=== PATIENT | female | born 1950 | race Caucasian/White ===

== ENCOUNTER 2021-10-19 02:30 | Inpatient (IN) | payer OTHER ==
[~2021-10-19] VITALS: Ht 157.5 cm; Wt 42.6 kg
[2021-10-19 02:50] LABS: BASOPHIL 0.3 % (0-2); EOSINOPHIL 0.1 % (0-7); HCT 42.8 % (37.0-47.0); HGB 12.5 g/dl (12.5-16.0); MCHC 29.2 g/dL (32.0-36.0); MCV 92.4 fL (78.0-100.0); MONOCYTE 7.4 % (0-12); MPV 10.7 fL (6.0-9.5); NEUTROPHIL 84.8 % (41-80); NRBC 0; PLT 339 K/uL (150-400); RBC 4.63 M/uL (4.20-5.40); RDW 16.4 % (11.5-14.0); WBC 18.9 K/uL (4.0-10.5)
[2021-10-19 03:06] LABS: ALBUMIN 2.5 g/dL (3.4-5.0); BILIRUBIN - TOTAL 0.3 mg/dL (0.2-1.0); BUN/CREAT RATIO (CALC) 50.6 RATIO; CREATININE 0.87 mg/dL (0.51-0.95); GLOBULIN (CALCULATION) 5.6 g/dL; POTASSIUM 3.8 mmol/L (3.5-5.1); TOTAL PROTEIN 8.1 g/dL (6.4-8.2)
[2021-10-19 03:07] LABS: LACTIC ACID 1.8 mmol/L (0.4-1.9)
[2021-10-19 03:08] LABS: INR 1.11 (0.9-1.2)
[2021-10-19 04:16] LABS: BILIRUBIN NEGATIVE (NEGATIVE); BLOOD NEGATIVE Ery/uL (NEGATIVE); CLARITY CLEAR (CLEAR); COLOR YELLOW (YELLOW); GLUCOSE (U) NORMAL (NORMAL); LEUKOCYTES 3+ Leu/uL (NEGATIVE); NITRITE NEGATIVE (NEGATIVE); PROTEIN NEGATIVE (NEGATIVE); UROBILINOGEN 0.2 mg/dL (0.2-1.0); pH 6.5 (5.0-9.0)
[2021-10-19 04:30] LABS: CORONAVIRUS 2019 SARS-COV-2 NEGATIVE (NEGATIVE); INFLUENZA A NAA NEGATIVE (NEGATIVE)
[2021-10-19 04:46] LABS: YEAST NOT PRESENT
[2021-10-19 05:32] LABS: BUN/CREAT RATIO (CALC) 40.2 RATIO; CREATININE 1.07 mg/dL (0.51-0.95); POTASSIUM 3.9 mmol/L (3.5-5.1)
[2021-10-19] MEDS ORDERED: 8 HOUR650 MG PO (11:51)
[2021-10-19] MEDS ORDERED: ASPIRIN EC81 MG PO (11:52)
[2021-10-19] MEDS ORDERED: LIPITOR40 MG PO (11:53)
[2021-10-19] MEDS ORDERED: PULMICORT0.5 MG/2 M NEB (11:53)
[2021-10-19] MEDS ORDERED: PLAVIX75 MG PO (11:54)
[2021-10-19] MEDS ORDERED: PEPCID AC20 MG PO (11:56)
[2021-10-19] MEDS ORDERED: LOVENOX30 MG/0.3 SQ (11:56)
[2021-10-19] MEDS ORDERED: FERROUS SU300 MG/5 M PO (12:06)
[2021-10-19] MEDS ORDERED: FOLIC ACID1 MG PO (12:07)
[2021-10-19] MEDS ORDERED: KEPPRA100 MG/1 M GT (12:08)
[2021-10-19] MEDS ORDERED: CYTOMEL25 MCG GT (12:09)
[2021-10-19] MEDS ORDERED: MIRALAX17 GM PO (12:09)
[2021-10-19] MEDS ORDERED: UROCIT-K10 MEQ GT (12:10)
[2021-10-19] MEDS ORDERED: SENOKOT8.6 MG PO (12:11)
[2021-10-19] MEDS ORDERED: B-1100 MG GT (12:12)
[2021-10-19 19:16] LABS: BUN/CREAT RATIO (CALC) 39.6 RATIO; CREATININE 0.91 mg/dL (0.51-0.95); POTASSIUM 3.5 mmol/L (3.5-5.1)
[2021-10-20 00:19] LABS: BUN/CREAT RATIO (CALC) 38.8 RATIO; CREATININE 0.85 mg/dL (0.51-0.95)
--- NOTE | 2021-10-20 14:15 | NUR ---
TRACH SUCTIONING PERFORMED.
[2021-10-20 14:33] LABS: IRON % SATURATION 7.7 %SAT (20-50)
[2021-10-20 14:44] LABS: BASOPHIL 0.2 % (0-2); EOSINOPHIL 0.8 % (0-7); HGB 9.2 g/dl (12.5-16.0); LYMPHOCYTE 12.9 % (15-48); MCH 27.1 pg (25.0-31.0); MCHC 28.8 g/dL (32.0-36.0); MCV 94.1 fL (78.0-100.0); MONOCYTE 6.1 % (0-12); MPV 10.7 fL (6.0-9.5); NEUTROPHIL 79.5 % (41-80); NRBC 0; PLT 234 K/uL (150-400); RDW 15.7 % (11.5-14.0); WBC 9.5 K/uL (4.0-10.5)
[2021-10-20 15:18] LABS: BILIRUBIN - TOTAL 0.2 mg/dL (0.2-1.0); CREATININE 0.73 mg/dL (0.51-0.95); FOLIC ACID (SERUM) 72.7 ng/mL (8.6-58.9); GLOBULIN (CALCULATION) 4.5 g/dL; MAGNESIUM 2.3 mg/dL (1.8-2.4); POTASSIUM 2.8 mmol/L (3.5-5.1); TOTAL PROTEIN 6.5 g/dL (6.4-8.2)
[2021-10-20] MEDS ORDERED: PROZAC20 MG PO (17:37)
[2021-10-20] MEDS ORDERED: NORVASC5 MG PO (17:37)
[2021-10-20] MEDS ORDERED: NAMENDA 10MG TA10 MG PO (17:37)
[2021-10-20] MEDS ORDERED: COLACE100 MG PO (17:37)
[2021-10-20] MEDS ORDERED: PRILOSEC20 MG PO (17:38)
[2021-10-20] MEDS ORDERED: LOPRESSOR25 MG PO (17:38)
[2021-10-20] MEDS ORDERED: DAILY VALUE1 EACH PO (17:38)
[2021-10-20] MEDS ORDERED: VITAMIN D3125 MC1 PO (17:39)
[2021-10-20 19:30] LABS: HCT 30.4 % (37.0-47.0); HGB 8.8 g/dL (12.5-16.0)
[2021-10-20 19:45] LABS: BUN/CREAT RATIO (CALC) 35.7 RATIO; CREATININE 0.7 mg/dL (0.51-0.95); POTASSIUM 3.2 mmol/L (3.5-5.1)
[2021-10-21 07:00] LABS: BASOPHIL 0.3 % (0-2); EOSINOPHIL 1.6 % (0-7); HCT 33.8 % (37.0-47.0); HGB 9.4 g/dl (12.5-16.0); LYMPHOCYTE 17.4 % (15-48); MCH 26.6 pg (25.0-31.0); MCHC 27.8 g/dL (32.0-36.0); MCV 95.8 fL (78.0-100.0); MONOCYTE 6.2 % (0-12); MPV 10.9 fL (6.0-9.5); NEUTROPHIL 74.1 % (41-80); NRBC 0; PLT 219 K/uL (150-400); RDW 15.6 % (11.5-14.0); WBC 7.6 K/uL (4.0-10.5)
[2021-10-21 07:41] LABS: RBC 3.53 M/uL (4.20-5.40)
[2021-10-21 07:47] LABS: BUN/CREAT RATIO (CALC) 37.1 RATIO; C-REACTIVE PROTEIN 4.7 mg/dL (<=0.90); CREATININE 0.62 mg/dL (0.51-0.95); MAGNESIUM 2.5 mg/dL (1.8-2.4); POTASSIUM 3.1 mmol/L (3.5-5.1)
[2021-10-22 05:52] LABS: BUN/CREAT RATIO (CALC) 24.5 RATIO; C-REACTIVE PROTEIN 2.7 mg/dL (<=0.90); CREATININE 0.53 mg/dL (0.51-0.95); POTASSIUM 3.3 mmol/L (3.5-5.1)
--- NOTE | 2021-10-22 17:31 | NUR ---
10/21-PATIENT CONTINUOUSLY WOULD TRY TO LAY SIDEWAYS IN BED IN ATTEMPT TO LAY FLAT. STAFF REPEATEDLY REPOSITIONED PATIENT Q15-30 MINUTES TO TRY TO KEEP HER AT 30-35 DEGREE THROUGHOUT THE SHIFT. PATIENT HAD COPIOUS AMOUNTS OF YELLOW SPUTUM, SHOWED HE STATED IT LOOKED LIKE PURE INFECTION. REPORTED THIS TO PM SHIFT. 10/22-PM SHIFT REPORTED SAME ISSUE WITH TRYING TO KEEP PATIENT AT 35DEGREE FOR FEEDS BUT HAD TO CONTINUE TO REPOSITION. SECRETIONS BEGAN TO LOOK TUBE FEED COLOR AND TUBE FEEDS WERE IMMEDIATELY STOPPED. HELD TUBE FEEDS FOR DURATION OF DAYSHIFT. SECRETIONS WERE LESS THAN PREVIOUS AM SHIFT AND WERE WHITE/YELLOW IN COLOR. CONTINUAL REPOSITIONING CONTINUED THROUGHOUT SHIFT THIS DATE WELL. PICC LINE WAS PLACED SINCE CENTRAL LINE WAS LEAKING. CENTRAL LINE TO BE REMOVED. PERIPHERAL IV BECAME EDEMATOUS AND LEAKING. WAS REMOVED AFTER PICC LINE WAS PLACED BY LIVIER THOMAS. SON GAVE CONSENT. PAPERWORK IN CHART
[2021-10-23 05:59] LABS: BASOPHIL 0.3 % (0-2); EOSINOPHIL 2.5 % (0-7); HCT 30.4 % (37.0-47.0); LYMPHOCYTE 20.1 % (15-48); MCH 26.7 pg (25.0-31.0); MCHC 29.6 g/dL (32.0-36.0); MONOCYTE 6.9 % (0-12); MPV 10.6 fL (6.0-9.5); NEUTROPHIL 69.8 % (41-80); NRBC 0; PLT 242 K/uL (150-400); RBC 3.37 M/uL (4.20-5.40); RDW 15.2 % (11.5-14.0); WBC 7.1 K/uL (4.0-10.5)
[2021-10-23 06:05] LABS: MCV 90.2 fL (78.0-100.0)
[2021-10-23 06:57] LABS: BILIRUBIN - TOTAL 0.3 mg/dL (0.2-1.0); BUN/CREAT RATIO (CALC) 14.3 RATIO; C-REACTIVE PROTEIN 4.2 mg/dL (<=0.90); CREATININE 0.63 mg/dL (0.51-0.95); GLOBULIN (CALCULATION) 4.3 g/dL; POTASSIUM 3.5 mmol/L (3.5-5.1); TOTAL PROTEIN 6.3 g/dL (6.4-8.2); VANCOMYCIN, TROUGH 11.9 ug/mL (10-20)
[2021-10-23 07:06] LABS: MAGNESIUM 1.9 mg/dL (1.8-2.4)
--- NOTE | 2021-10-23 09:30 | NUR ---
10/23/21 This oncology social worker and Dr. Walters met with Can Parikh, son, and Richi Eganr, mother, on 10/20/21. At this time, family made a decision for DNR code status. - Ms. Andujar was admitted from [facility]. [facility] will accept patient back. However, a new pre-auth will be needed. - The family would prefer for Ms. Andujar to return to [facility], [facility], [place] or [facility]. - Ms. Andujar is not medical ready for for discharge.
--- NOTE | 2021-10-23 12:06 | NUR ---
10/23/21 Clinicals have been submitted to [facility] for review.
--- NOTE | 2021-10-24 09:59 | NUR ---
10/24/21 [facility] declined to accept patient back. [facility] nor [facility] accept patients with trachs. [facility] and [facility] patients with trach. However, they do not have available beds. Ms. Andujar has been placed on the waiting list at both of these facilities. - Clinicals have been submitted to [facility] for insurance authorization to be initiated.
--- NOTE | 2021-10-24 10:06 | NUR ---
Phone call to Lida METCALF re: patient's new tube feeding formula and tolerance to change. RN reports pt advanced to 35cc/hr this morning with no observable s/s of intolerance. Will monitor medical condition with further recs for d/c.
--- NOTE | 2021-10-24 15:53 | NUR ---
10/24/21 Insurance denied admission to [facility] per [facility]. José Quiroz reports that [facility] will accept as Medicaid pending. - Patient was also placed on the waiting list at [facility] [place] family request.
[2021-10-25 06:47] LABS: BASOPHIL 0.5 % (0-2); EOSINOPHIL 2.3 % (0-7); HCT 30.8 % (37.0-47.0); LYMPHOCYTE 20.6 % (15-48); MCH 26.3 pg (25.0-31.0); MCHC 29.2 g/dL (32.0-36.0); MCV 90.1 fL (78.0-100.0); MONOCYTE 7.8 % (0-12); NEUTROPHIL 67.9 % (41-80); NRBC 0; PLT 250 K/uL (150-400); RBC 3.42 M/uL (4.20-5.40); RDW 15.1 % (11.5-14.0); WBC 6.4 K/uL (4.0-10.5)
[2021-10-25 07:19] LABS: BUN/CREAT RATIO (CALC) 14.3 RATIO; CREATININE 0.56 mg/dL (0.51-0.95); POTASSIUM 3.3 mmol/L (3.5-5.1)
[2021-10-25] MEDS ORDERED: CEFDINIR300 MG PO (11:45)
== END 2021-10-25 15:00 | DRG 871 ==
LOC: FER 02:30 → FICU 10:53
PROVIDERS: Internal Medicine; Nurse Practitioner; ADMIT Emergency Medicine
PROC: 06HY33Z Insertion of Infusion Device into Lower Vein, Percutaneous Approach (ICD-10-PCS; principal; 2021-10-19)
PROC: 3E03329 Introduction of Other Anti-infective into Peripheral Vein, Percutaneous Approach (ICD-10-PCS; 2021-10-19)
PROC: 02HV33Z Insertion of Infusion Device into Superior Vena Cava, Percutaneous Approach (ICD-10-PCS; 2021-10-22)
DX: A41.9 Sepsis, unspecified organism (principal); G93.41 Metabolic encephalopathy; L89.313 Pressure ulcer of right buttock, stage 3; J96.21 Acute and chronic respiratory failure with hypoxia; J69.0 Pneumonitis due to inhalation of food and vomit; J18.9 Pneumonia, unspecified organism; J98.11 Atelectasis; E87.0 Hyperosmolality and hypernatremia; N17.9 Acute kidney failure, unspecified; E44.0 Moderate protein-calorie malnutrition; I69.954 Hemiplegia and hemiparesis following unspecified cerebrovascular disease affecting left non-dominant side; Z68.1 Body mass index [BMI] 19.9 or less, adult; Z20.822 Contact with and (suspected) exposure to COVID-19; Y95 Nosocomial condition; Z66 Do not resuscitate; K94.21 Gastrostomy hemorrhage; K56.41 Fecal impaction; E78.5 Hyperlipidemia, unspecified; E05.90 Thyrotoxicosis, unspecified without thyrotoxic crisis or storm; D64.9 Anemia, unspecified; E11.9 Type 2 diabetes mellitus without complications; E83.52 Hypercalcemia; E86.0 Dehydration; Z79.82 Long term (current) use of aspirin; Z79.02 Long term (current) use of antithrombotics/antiplatelets; Z79.899 Other long term (current) drug therapy
CPT/HCPCS: 36415; 36600; 71045; 71250; 72170; 80048; 80053; 80202; 80299; 81001; 82140; 82607; 82746; 82803; 82962; 83540; 83550; 83605; 83690; 83735; 83880; 84145; 84484; 85014; 85018; 85025; 85610; 85730; 86140; 87040; 87070; 87205; 92523; 93005; 94640; 94760; 94762; 96365; 96366; 97162; 97167; 97530; 97530-GP; C1751; J1642; J1650; J1956; J2543; J2916; J3370; J7030; J7050; J7060; J7070; J7120; U0002

== ENCOUNTER 2021-10-30 07:23 | Inpatient (IN) | payer OTHER ==
[~2021-10-30] VITALS: Ht 157.5 cm; Wt 44.9 kg
[~2021-10-30 07:23] MED LIST: 8 HOUR650 MG PO; ASPIRIN EC81 MG PO; B-1100 MG GT; CEFDINIR300 MG PO; COLACE100 MG PO; CYTOMEL25 MCG GT; DAILY VALUE1 EACH PO; FERROUS SU300 MG/5 M PO; FOLIC ACID1 MG PO; KEPPRA100 MG/1 M GT; LIPITOR40 MG PO; LOPRESSOR25 MG PO; LOVENOX30 MG/0.3 SQ; MIRALAX17 GM PO; NAMENDA 10MG TA10 MG PO; NORVASC5 MG PO; PEPCID AC20 MG PO; PLAVIX75 MG PO; PRILOSEC20 MG PO; PROZAC20 MG PO; PULMICORT0.5 MG/2 M NEB; SENOKOT8.6 MG PO; UROCIT-K10 MEQ GT; VITAMIN D3125 MC1 PO
[2021-10-30 08:02] LABS: ALBUMIN 2.2 g/dL (3.4-5.0); BASOPHIL 0.4 % (0-2); BILIRUBIN - TOTAL 0.2 mg/dL (0.2-1.0); BUN/CREAT RATIO (CALC) 32.4 RATIO; CREATININE 1.39 mg/dL (0.51-0.95); EOSINOPHIL 0 % (0-7); GLOBULIN (CALCULATION) 4.9 g/dL; HCT 35.2 % (37.0-47.0); HGB 10.5 g/dl (12.5-16.0); LYMPHOCYTE 7.2 % (15-48); MCH 27.5 pg (25.0-31.0); MCHC 29.8 g/dL (32.0-36.0); MCV 92.1 fL (78.0-100.0); MONOCYTE 2.3 % (0-12); MPV 10.3 fL (6.0-9.5); NEUTROPHIL 89.4 % (41-80); NRBC 0.1; PLT 383 K/uL (150-400); POTASSIUM 4.5 mmol/L (3.5-5.1); RBC 3.82 M/uL (4.20-5.40); RDW 17.8 % (11.5-14.0); TOTAL PROTEIN 7.1 g/dL (6.4-8.2); WBC 19.3 K/uL (4.0-10.5)
[2021-10-30 08:06] LABS: INR 1.1 (0.9-1.2); PROTHROMBIN TIME 13.9 SECONDS (11.9-13.9); PTT 30.4 SECONDS (24.9-34.6)
[2021-10-30 08:08] LABS: BILIRUBIN NEGATIVE (NEGATIVE); BLOOD 2+ Ery/uL (NEGATIVE); COLOR YELLOW (YELLOW); GLUCOSE (U) NORMAL (NORMAL); LEUKOCYTES 3+ Leu/uL (NEGATIVE); NITRITE NEGATIVE (NEGATIVE); PROTEIN TRACE (LOW) mg/dL (NEGATIVE); UROBILINOGEN 0.2 mg/dL (0.2-1.0); pH 6.5 (5.0-9.0)
[2021-10-30 08:12] LABS: CLARITY CLOUDY (CLEAR)
[2021-10-30 08:20] LABS: AMORPHOUS PHOSPHATE CRYSTALS LARGE; BACTERIA 1+
[2021-10-30 08:21] LABS: GRANULAR CASTS TRACE
[2021-10-30 08:41] LABS: LACTIC ACID 2.2 mmol/L (0.4-1.9)
--- NOTE | 2021-10-30 14:15 | NUR ---
PATIENT RECEIVED BY BED FROM ER. ADMISSION ASSESSMENTS COMPLETED. NO FAMILY TO ORIENT OR Assist with ADMISSION
[2021-10-30 16:35] LABS: BILIRUBIN NEGATIVE (NEGATIVE); BLOOD NEGATIVE Ery/uL (NEGATIVE); CLARITY CLEAR (CLEAR); COLOR YELLOW (YELLOW); GLUCOSE (U) NORMAL (NORMAL); LEUKOCYTES NEGATIVE Leu/uL (NEGATIVE); NITRITE NEGATIVE (NEGATIVE); PROTEIN NEGATIVE (NEGATIVE); UROBILINOGEN 0.2 mg/dL (0.2-1.0)
[2021-10-30] MEDS ORDERED: MEDIHONEY44 ML TOP (16:46)
[2021-10-30] MEDS ORDERED: EFFER-K 10 MEQ10 MEQ GT (16:48)
[2021-10-31 05:44] LABS: BASOPHIL 0.4 % (0-2); EOSINOPHIL 0.4 % (0-7); HGB 8.4 g/dl (12.5-16.0); LYMPHOCYTE 20.4 % (15-48); MCH 27.5 pg (25.0-31.0); MCV 91.5 fL (78.0-100.0); MONOCYTE 4.4 % (0-12); MPV 9.9 fL (6.0-9.5); NEUTROPHIL 74.1 % (41-80); NRBC 0; PLT 203 K/uL (150-400); RBC 3.06 M/uL (4.20-5.40); WBC 7.2 K/uL (4.0-10.5)
--- NOTE | 2021-10-31 05:54 | NUR ---
LEVO GTT STOPPED AT 0230 ON 10/31 2135- BP 116/58 (77), LEVO TURNED DOWN TO 6MCG 0020- BP 140/77 (98), LEVO TURNED DOWN TO 4MCG 0145- BP 119/56 (83), LEVO TURNED DOWN TO 2MCG 0230- 133/64 (87), LEVO STOPPED
[2021-10-31 06:20] LABS: ALBUMIN 1.7 g/dL (3.4-5.0); BILIRUBIN - TOTAL 0.2 mg/dL (0.2-1.0); CREATININE 0.73 mg/dL (0.51-0.95); POTASSIUM 3.3 mmol/L (3.5-5.1); TOTAL PROTEIN 5.7 g/dL (6.4-8.2)
--- NOTE | 2021-10-31 15:13 | NUR ---
10/31/21 Ms. Andujar was admitted from [facility]. They will submit clinicals to insurance. If insurance denies, they will accept back as Medicaid pending. A referal was also submitted to [facility] per patient's mother's request.
[2021-11-01 06:24] LABS: BASOPHIL 0.3 % (0-2); EOSINOPHIL 2.2 % (0-7); HCT 28.7 % (37.0-47.0); HGB 8.7 g/dl (12.5-16.0); LYMPHOCYTE 20.5 % (15-48); MCH 27.2 pg (25.0-31.0); MCHC 30.3 g/dL (32.0-36.0); MCV 89.7 fL (78.0-100.0); MONOCYTE 4.7 % (0-12); MPV 10.2 fL (6.0-9.5); NEUTROPHIL 71.9 % (41-80); PLT 205 K/uL (150-400); RDW 16.4 % (11.5-14.0); WBC 6.8 K/uL (4.0-10.5)
[2021-11-01 06:51] LABS: ALBUMIN 1.8 g/dL (3.4-5.0); BILIRUBIN - TOTAL 0.2 mg/dL (0.2-1.0); BUN/CREAT RATIO (CALC) 21.7 RATIO; CREATININE 0.6 mg/dL (0.51-0.95); GLOBULIN (CALCULATION) 4.1 g/dL; POTASSIUM 3.5 mmol/L (3.5-5.1); TOTAL PROTEIN 5.9 g/dL (6.4-8.2)
[2021-11-01 06:57] LABS: BASOPHIL(M) 1 % (0-2); EOSINOPHIL(M) 1 % (0-7); LYMPHOCYTE(M) 15 % (15-48); MONOCYTE(M) 3 % (0-12); NEUTROPHILS(M) 80 % (41-80); TOTAL CELL COUNT 100
[2021-11-01 06:58] LABS: PLATELET ESTIMATE NORMAL; PLATELET MORPHOLOGY NORMAL
--- NOTE | 2021-11-01 14:11 | NUR ---
11/01/21 Discharge is anticipated for 11/02. José Quiroz at [facility] was informed. Again, [facility] will accept as Medicaid pending.
[2021-11-02 05:59] LABS: BASOPHIL 0.3 % (0-2); EOSINOPHIL 1.8 % (0-7); HCT 28.3 % (37.0-47.0); HGB 8.6 g/dl (12.5-16.0); LYMPHOCYTE 18.2 % (15-48); MCH 27.3 pg (25.0-31.0); MCHC 30.4 g/dL (32.0-36.0); MCV 89.8 fL (78.0-100.0); MONOCYTE 6.3 % (0-12); MPV 10.4 fL (6.0-9.5); NEUTROPHIL 73.1 % (41-80); NRBC 0; PLT 230 K/uL (150-400); RBC 3.15 M/uL (4.20-5.40); RDW 17.1 % (11.5-14.0); WBC 6.1 K/uL (4.0-10.5)
[2021-11-02 06:22] LABS: BUN/CREAT RATIO (CALC) 19.6 RATIO; CREATININE 0.51 mg/dL (0.51-0.95); POTASSIUM 3.9 mmol/L (3.5-5.1)
[2021-11-02] MEDS ORDERED: LEVAQUIN500 MG PO (07:59)
[2021-11-02] MEDS ORDERED: ZYVOX600 MG PO (15:04)
--- NOTE | 2021-11-03 09:35 | NUR ---
PATIENT WAS DISCHARGED BEFORE BEING EVALUATED BY WOUND CARE.
== END 2021-11-02 12:08 | DRG 698 ==
LOC: FER 07:23 → FICU 09:56
PROVIDERS: Allergy & Immunology Allergy; Emergency Medicine; ADMIT Internal Medicine
PROC: 3E033XZ Introduction of Vasopressor into Peripheral Vein, Percutaneous Approach (ICD-10-PCS; principal; 2021-10-30)
PROC: 06HY33Z Insertion of Infusion Device into Lower Vein, Percutaneous Approach (ICD-10-PCS; 2021-10-30)
PROC: 3E03329 Introduction of Other Anti-infective into Peripheral Vein, Percutaneous Approach (ICD-10-PCS; 2021-10-30)
DX: T83.511A Infection and inflammatory reaction due to indwelling urethral catheter, initial encounter (principal); A41.89 Other specified sepsis; E43 Unspecified severe protein-calorie malnutrition; R65.21 Severe sepsis with septic shock; J96.90 Respiratory failure, unspecified, unspecified whether with hypoxia or hypercapnia; N17.9 Acute kidney failure, unspecified; I67.89 Other cerebrovascular disease; Z20.822 Contact with and (suspected) exposure to COVID-19; N39.0 Urinary tract infection, site not specified; E87.6 Hypokalemia; Z74.01 Bed confinement status; R91.8 Other nonspecific abnormal finding of lung field; D64.9 Anemia, unspecified; L89.312 Pressure ulcer of right buttock, stage 2; E78.5 Hyperlipidemia, unspecified; E03.9 Hypothyroidism, unspecified; E11.9 Type 2 diabetes mellitus without complications; R56.9 Unspecified convulsions; I10 Essential (primary) hypertension; Y83.8 Other surgical procedures as the cause of abnormal reaction of the patient, or of later complication, without mention of misadventure at the time of the procedure
CPT/HCPCS: 36415; 36600; 70450; 71045; 71250; 80048; 80053; 80202; 81001; 81003; 82803; 83605; 83880; 84145; 84484; 85025; 85610; 85730; 87040; 87088; 87186; 93005; 94640; 94760; 96361; 96365; 96367; 96368; 96375; C9113; J1650; J1956; J2543; J3370; J3480; J7030; J7050; J7120; U0002

== ENCOUNTER 2021-11-03 14:24 | Emergency (ER) | payer OTHER ==
[~2021-11-03 14:24] MED LIST changes: +EFFER-K 10 MEQ10 MEQ GT; +LEVAQUIN500 MG PO; +MEDIHONEY44 ML TOP; +ZYVOX600 MG PO
[2021-11-03 15:22] LABS: BASOPHIL 0.4 % (0-2); HCT 33.3 % (37.0-47.0); HGB 10.1 g/dl (12.5-16.0); LYMPHOCYTE 19.6 % (15-48); MCH 27.2 pg (25.0-31.0); MCHC 30.3 g/dL (32.0-36.0); MCV 89.8 fL (78.0-100.0); MONOCYTE 6.3 % (0-12); MPV 9.8 fL (6.0-9.5); NEUTROPHIL 72.4 % (41-80); NRBC 0; PLT 296 K/uL (150-400); RBC 3.71 M/uL (4.20-5.40); RDW 17.2 % (11.5-14.0); WBC 7.8 K/uL (4.0-10.5)
[2021-11-03 15:36] LABS: ALBUMIN 2.7 g/dL (3.4-5.0); BILIRUBIN - TOTAL 0.2 mg/dL (0.2-1.0); BUN/CREAT RATIO (CALC) 23.1 RATIO; CREATININE 0.52 mg/dL (0.51-0.95); GLOBULIN (CALCULATION) 4.4 g/dL; POTASSIUM 4.5 mmol/L (3.5-5.1); TOTAL PROTEIN 7.1 g/dL (6.4-8.2)
[2021-11-03 15:54] LABS: CORONAVIRUS 2019 SARS-COV-2 NEGATIVE (NEGATIVE); INFLUENZA A NAA NEGATIVE (NEGATIVE)
== END 2021-11-03 19:20 | disposition other institution (70) ==
LOC: FER 14:24
PROVIDERS: Internal Medicine
DX: J95.09 Other tracheostomy complication (principal); Z20.822 Contact with and (suspected) exposure to COVID-19; Z86.73 Personal history of transient ischemic attack (TIA), and cerebral infarction without residual deficits
CPT/HCPCS: 36415; 71045; 80053; 84145; 85025; U0002

== ENCOUNTER 2021-11-15 21:21 | Emergency (ER) | payer OTHER | END 2021-11-16 01:40 | disposition home or self-care (01) | LOC: FER 21:21 | DX: T14.8XXA Other injury of unspecified body region, initial encounter (principal); M25.512 Pain in left shoulder; M25.511 Pain in right shoulder; M25.551 Pain in right hip; Z86.73 Personal history of transient ischemic attack (TIA), and cerebral infarction without residual deficits; W18.39XA Other fall on same level, initial encounter; Y92.129 Unspecified place in nursing home as the place of occurrence of the external cause | CPT/HCPCS: 70450; 73030; 73502 ==

== ENCOUNTER 2021-11-23 04:25 | Emergency (ER) | payer OTHER ==
[2021-11-23 05:02] LABS: BASOPHIL 0.3 % (0-2); EOSINOPHIL 0.1 % (0-7); HGB 9.9 g/dl (12.5-16.0); LYMPHOCYTE 23.5 % (15-48); MCH 27.7 pg (25.0-31.0); MCHC 26.8 g/dL (32.0-36.0); MCV 103.4 fL (78.0-100.0); MONOCYTE 3.2 % (0-12); MPV 11.8 fL (6.0-9.5); NEUTROPHIL 68.9 % (41-80); NRBC 0.4; PLT 283 K/uL (150-400); RBC 3.58 M/uL (4.20-5.40); RDW 17.3 % (11.5-14.0)
[2021-11-23 05:24] LABS: BILIRUBIN - TOTAL 0.3 mg/dL (0.2-1.0); BUN/CREAT RATIO (CALC) 36.9 RATIO; CREATININE 1.57 mg/dL (0.51-0.95); GLOBULIN (CALCULATION) 4.7 g/dL; POTASSIUM 4.4 mmol/L (3.5-5.1); TOTAL PROTEIN 6.7 g/dL (6.4-8.2)
[2021-11-23 05:47] LABS: CORONAVIRUS 2019 SARS-COV-2 NEGATIVE (NEGATIVE); INFLUENZA A NAA NEGATIVE (NEGATIVE)
[2021-11-23 06:33] LABS: BILIRUBIN NEGATIVE (NEGATIVE); BLOOD 2+ Ery/uL (NEGATIVE); CLARITY CLEAR (CLEAR); COLOR YELLOW (YELLOW); GLUCOSE (U) 1+ mg/dL (NORMAL); LEUKOCYTES NEGATIVE Leu/uL (NEGATIVE); NITRITE NEGATIVE (NEGATIVE); PROTEIN 2+ mg/dL (NEGATIVE); UROBILINOGEN 0.2 mg/dL (0.2-1.0); pH 7.5 (5.0-9.0)
[2021-11-23 07:02] LABS: BACTERIA 2+; URINARY RBC RARE
[2021-11-23 08:24] LABS: BUN/CREAT RATIO (CALC) 42.7 RATIO; CREATININE 1.17 mg/dL (0.51-0.95); POTASSIUM 3.4 mmol/L (3.5-5.1)
== END 2021-11-23 11:22 | disposition other institution (70) ==
LOC: FER 04:25
PROVIDERS: Emergency Medicine
DX: A41.9 Sepsis, unspecified organism (principal); R65.21 Severe sepsis with septic shock; N17.9 Acute kidney failure, unspecified; R09.2 Respiratory arrest; G93.1 Anoxic brain damage, not elsewhere classified; E87.0 Hyperosmolality and hypernatremia; Z20.822 Contact with and (suspected) exposure to COVID-19
CPT/HCPCS: 36415; 36600; 70450; 71045; 71250; 72125; 80048; 80053; 81001; 82803; 83605; 84145; 84484; 85025; 87040; 87088; 93005; 96365; 96366; 96368; 96375; 96376; J0692; J2370; J3370; J7050; J7060; J7120; U0002